=== PATIENT | female | born 1995 | race African-American/Black ===

== ENCOUNTER 2019-12-21 09:27 | Emergency (ER) | payer OTHER ==
[~2019-12-21] VITALS: Ht 175.3 cm; Wt 115.2 kg
[2019-12-21 09:27] VITALS: BP 116/54
[~2019-12-21 09:27] MED LIST: PREDNISONE 20 M20 MG PO; PROMETH-CODEIN 65 ML PO; PROVENTIL HFA6.7 G1 INH
[2019-12-21] MEDS ORDERED: TESSALON PERLE100 MG PO (10:13)
[2019-12-21] MEDS ORDERED: PROAIR HFA8.5 GM INH (10:13)
== END 2019-12-21 10:10 ==
LOC: ER 09:27
DX: R05 Cough (principal); J06.9 Acute upper respiratory infection, unspecified; F17.210 Nicotine dependence, cigarettes, uncomplicated; F32.9 Major depressive disorder, single episode, unspecified; Z91.010 Allergy to peanuts